=== PATIENT | male | born 1950 | race Caucasian/White ===

== ENCOUNTER 2016-09-14 14:34 | Emergency (ER) | payer OTHER ==
--- NOTE | 2016-09-14 15:15 | EDM.PDOC ---
ED HPI GENERAL MEDICAL PROBLEM - General Chief Complaint: General Stated Complaint: ELEVATED BP Time Seen by Provider: 09/14/16 14:35 Source of Information: Reports: Patient History Limitations: Reports: No Limitations - History of Present Illness INITIAL COMMENTS - FREE TEXT/NARRATIVE: Pt is a 65 year old male with PMH of hypertension and hyperlipidemia, who is here in the area fishing since Thursday. Apparently patient's son claims that patient and himself went fishing today morning and around 11: 30 AM today patient started to get confused.Pt kept asking his son the same questions again and again and kept telling his son that he was confused. No nausea or vomiting. No weakness in the extremities. No blurry vision. No ringing in the ears. He does c/o headache dull in the right side of the head. Able to move his arms and leg. he does obey commands. Pt was seen at [facility], his blood pressure was 210/104mmhg. His blood sugar was normal. So he was transferred to [facility]. Here his BP is 179/92mmhg. But patient keeps repeating the same questions again and again. Onset: Today Onset Date: 09/14/16 Onset Time: 11:30 Severity: Moderate ED ROS GENERAL - Review of Systems Review Of Systems: See Below Constitutional: Denies: Fever, Chills, Weakness HEENT: Denies: Rhinitis, Sinus Problem, Throat Pain, Throat Swelling Respiratory: Denies: Shortness of Breath, Wheezing, Cough, Sputum Cardiovascular: Denies: Chest Pain, Lightheadedness GI/Abdominal: Denies: Abdominal Pain, Constipation, Diarrhea, Nausea, Vomiting : Denies: Dysuria, Flank Pain Neurological: Reports: Confusion, Headache. Denies: Dizziness, Numbness, Paresthesia, Tingling, Trouble Speaking, Difficulty Walking, Weakness Psychiatric: Reports: Confusion. Denies: Agitation, Anxiety Hematologic/Lymphatic: Denies: Easy Bleeding, Easy Bruising ED EXAM, GENERAL - Physical Exam Exam: See Below Exam Limited By: Altered Mental Status (Confused but obeys commands well. But keep repeating the same sentences again and again.) General Appearance: Alert, WD/WN, No Apparent Distress Eye Exam: Bilateral Eye: EOMI, PERRL Ears: Normal External Exam, Normal Canal, Hearing Grossly Normal, Normal TMs Ear Exam: Bilateral Ear: Auricle Normal, Canal Normal, TM normal Nose: Normal Inspection, Normal Mucosa, No Blood Throat/Mouth: Normal Inspection, Normal Lips, Normal Teeth, Normal Gums, Normal Oropharynx, Normal Voice, No Airway Compromise Head: Atraumatic, Normocephalic Neck: Normal Inspection, Supple, Non-Tender, Full Range of Motion Respiratory/Chest: No Respiratory Distress, Lungs Clear, Normal Breath Sounds, No Accessory Muscle Use, Chest Non-Tender Cardiovascular: Normal Peripheral Pulses, Regular Rate, Rhythm, No Edema, No Gallop, No JVD, No Murmur, No Rub GI/Abdominal: Normal Bowel Sounds, Soft, Non-Tender, No Organomegaly, No Distention, No Abnormal Bruit, No Mass Neurological: Alert, CN II-XII Intact, Normal Gait, Normal Reflexes, No Motor/ Sensory Deficits, Confused (Pt is confused and keeps repeating the same questions again and agian.). No: Oriented, Normal Cognition EKG INTERPRETATION EKG Date: 09/14/16 Rhythm: NSR [place]: normal P-wave: present QRS: normal ST-T: normal QT: normal Course - Vital Signs Text/Narrative:: Pt's clinical exam is normal. his neuro exam is normal other than his repetitive questioning. His CBC is normal. His electrolytes are normal . Drug screen is negative. His He does not have any sensory or motor deficits. Co- ordination is normal. CT head shows Chronic subdural hematoma less than 3mm in the left frontal and left posterior fossa. He does appear like he has had a transient amnesia for the events that have happened when his blood pressure was very high between 11:30 to 2 PM. I did Call the neurologist conduit mechanic as per the preference of Patient spouse and son, as they prefer patient to be at [place]. He does feel that he might have had hypertensive encephalopathy with global amnesia, does not appear like stroke. does want MRI and EEG done to rule out other cause and seizure with patient symptoms. Unfortunately we do not have MRI or EEG at our facility. does prefer him transferred down to [place] for workup. He has received his lisinopril 40mg PO as his last BP was 178/92mmhg. Also received Aspirin 325mg PO times one per 's request. Pt's Family wants him transferred to [facility]. There is no availability of ALS ambulance at [place] or [place]. Hence [facility] ambulance was called. Family does understand that there might be a difference in charges on the ambulance transfer that will be and understand they might have to pay out of pocket Last Recorded V/S: Last Vital Signs Temp 97.5 F 09/14/16 17:40 Pulse 62 09/14/16 17:40 Resp 16 09/14/16 17:40 BP 179/94 H 09/14/16 17:40 Pulse Ox 98 09/14/16 17:40 - Orders/Labs/Meds Orders: Active Orders 24 hr Category Date Time Status EKG Documentation Completion [RC] ASDIRECTED Care 09/14/16 14:38 Active Head wo Cont [CT] Stat Exams 09/14/16 14:38 Taken Lisinopril [Prinivil] Med 09/14/16 15:30 Active 40 mg PO DAILY Medication Orders Lisinopril (Prinivil) 40 mg PO DAILY MARKO Last Admin: 09/14/16 15:26 Dose: 40 mg Labs: Laboratory Tests 09/14/16 09/14/16 09/14/16 Range/Units 14:45 14:45 14:45 WBC 11.7 H (4.0-11.0) K/uL RBC 5.17 (4.50-6.50) M/uL Hgb 15.1 (13.0-18.0) g/dL Hct 43.5 (40.0-54.0) % MCV 84 (76-96) fL MCH 29.2 (27.0-32.0) pg MCHC 34.7 (31.0-35.0) g/dL RDW 13.2 (11.0-16.0) % Plt Count 152 (150-400) K/uL MPV 11.1 H (6.0-10.0) fL Neut % (Auto) 86.4 H (45.0-70.0) % Lymph % (Auto) 7.9 L (20.0-40.0) % Pierce % (Auto) 5.0 (3.0-10.0) % Eos % (Auto) 0.5 L (1.0-5.0) % Baso % (Auto) 0.2 (0.0-0.5) % Neut # (Auto) 10.13 H (2.00-7.50) K/uL Lymph # (Auto) 0.92 L (1.50-4.00) K/uL Pierce # (Auto) 0.58 (0.20-0.80) K/uL Eos # (Auto) 0.06 (0.04-0.40) K/uL Baso # (Auto) 0.02 (0.02-0.10) K/uL Sodium 138 (136-145) mmol/L Potassium 3.7 (3.5-5.1) mmol/L Chloride 103 (98-107) mmol/L Carbon Dioxide 24.4 (21.0-32.0) mmol/L Anion Gap 14.3 (5.0-15.0) mmol/L BUN 19 (8-26) mg/dL Creatinine 1.12 (0.70-1.30) mg/dL Est Cr Clr Drug Dosing TNP Estimated GFR (MDRD) > 60 (>60) MLS/MIN BUN/Creatinine Ratio 17.0 (6-25) Glucose 101 H (74-100) mg/dL Calcium 8.8 (8.5-10.1) mg/dL Total Bilirubin 0.5 (0.0-1.0) mg/dL AST 22 (15-37) U/L ALT 33 (12-78) U/L Alkaline Phosphatase 103 (46-116) U/L Troponin I < 0.017 (0.000-0.060) ng/mL Total Protein 7.2 (6.4-8.2) g/dL Albumin 4.0 (3.4-5.0) g/dL Globulin 3.2 (2.2-4.2) g/dL Albumin/Globulin Ratio 1.3 (0.8-2.0) Urine Opiates Screen (NEGATIVE) Ur Oxycodone Screen (NEGATIVE) Urine Methadone Screen (NEGATIVE) U Acetaminophen Screen (NEGATIVE) Ur Barbiturates Screen (NEGATIVE) Ur Tricyclics Screen (NEGATIVE) Ur Phencyclidine Scrn (NEGATIVE) Ur Amphetamine Screen (NEGATIVE) U Methamphetamines Scrn (NEGATIVE) U Benzodiazepines Scrn (NEGATIVE) U Cocaine Metab Screen (NEGATIVE) U Marijuana (THC) Screen (NEGATIVE) 09/14/16 Range/Units 15:29 WBC (4.0-11.0) K/uL RBC (4.50-6.50) M/uL Hgb (13.0-18.0) g/dL Hct (40.0-54.0) % MCV (76-96) fL MCH (27.0-32.0) pg MCHC (31.0-35.0) g/dL RDW (11.0-16.0) % Plt Count (150-400) K/uL MPV (6.0-10.0) fL Neut % (Auto) (45.0-70.0) % Lymph % (Auto) (20.0-40.0) % Pierce % (Auto) (3.0-10.0) % Eos % (Auto) (1.0-5.0) % Baso % (Auto) (0.0-0.5) % Neut # (Auto) (2.00-7.50) K/uL Lymph # (Auto) (1.50-4.00) K/uL Pierce # (Auto) (0.20-0.80) K/uL Eos # (Auto) (0.04-0.40) K/uL Baso # (Auto) (0.02-0.10) K/uL Sodium (136-145) mmol/L Potassium (3.5-5.1) mmol/L Chloride (98-107) mmol/L Carbon Dioxide (21.0-32.0) mmol/L Anion Gap (5.0-15.0) mmol/L BUN (8-26) mg/dL Creatinine (0.70-1.30) mg/dL Est Cr Clr Drug Dosing Estimated GFR (MDRD) (>60) MLS/MIN BUN/Creatinine Ratio (6-25) Glucose (74-100) mg/dL Calcium (8.5-10.1) mg/dL Total Bilirubin (0.0-1.0) mg/dL AST (15-37) U/L ALT (12-78) U/L Alkaline Phosphatase (46-116) U/L Troponin I (0.000-0.060) ng/mL Total Protein (6.4-8.2) g/dL Albumin (3.4-5.0) g/dL Globulin (2.2-4.2) g/dL Albumin/Globulin Ratio (0.8-2.0) Urine Opiates Screen Negative (NEGATIVE) Ur Oxycodone Screen Negative (NEGATIVE) Urine Methadone Screen Negative (NEGATIVE) U Acetaminophen Screen Negative (NEGATIVE) Ur Barbiturates Screen Negative (NEGATIVE) Ur Tricyclics Screen Negative (NEGATIVE) Ur Phencyclidine Scrn Negative (NEGATIVE) Ur Amphetamine Screen Negative (NEGATIVE) U Methamphetamines Scrn Negative (NEGATIVE) U Benzodiazepines Scrn Negative (NEGATIVE) U Cocaine Metab Screen Negative (NEGATIVE) U Marijuana (THC) Screen Negative (NEGATIVE) Meds: Medications Generic Name Dose Route Start Last Admin Trade Name Freq PRN Reason Stop Dose Admin Lisinopril 40 mg 09/14/16 15:30 09/14/16 15:26 Prinivil PO 40 mg DAILY MARKO Administration Discontinued Medications Generic Name Dose Route Start Last Admin Trade Name Freq PRN Reason Stop Dose Admin Aspirin 325 mg 09/14/16 15:58 09/14/16 16:01 Ecotrin PO 09/14/16 15:59 325 mg ONETIME ONE Administration Aspirin Confirm 09/14/16 15:59 09/14/16 16:03 Ecotrin Administered 09/14/16 16:00 Not Given Dose 325 mg .ROUTE .STK-MED ONE Departure - Departure Time of Disposition: 18:00 Disposition: DC/Tfer to Acute Hospital 02 Condition: fair Clinical Impression: Encephalopathy, hypertensive, Global amnesia - Discharge Information Forms: ED Department Discharge - Problem List & Annotations (1) Encephalopathy, hypertensive SNOMED Code(s): 78939201 Code(s): I67.4 - HYPERTENSIVE ENCEPHALOPATHY Status: Acute Current Visit : Yes (2) Global amnesia SNOMED Code(s): 08249951 Code(s): R41.3 - OTHER AMNESIA Status: Acute Current Visit: Yes - Problem List Review Problem List Initiated/Reviewed/Updated: Yes - My Orders Last 24 Hours: My Active Orders 09/14/16 14:38 EKG Documentation Completion [RC] ASDIRECTED Head wo Cont [CT] Stat 09/14/16 15:30 Lisinopril [Prinivil] 40 mg PO DAILY - Assessment/Plan Last 24 Hours: My Active Orders 09/14/16 14:38 EKG Documentation Completion [RC] ASDIRECTED Head wo Cont [CT] Stat 09/14/16 15:30 Lisinopril [Prinivil] 40 mg PO DAILY Assessment:: Hypertensive encephalopathy with transient global amnesia Plan: Pt's clinical exam is normal. his neuro exam is normal other than his repetitive questioning. His CBC is normal. His electrolytes are normal . Drug screen is negative. His He does not have any sensory or motor deficits. Co- ordination is normal. CT head shows Chronic subdural hematoma less than 3mm in the left frontal and left posterior fossa. He does appear like he has had a transient amnesia for the events that have happened when his blood pressure was very high between 11:30 to 2 PM. I did Call the neurologist conduit mechanic as per the preference of Patient spouse and son, as they prefer patient to be at [place]. He does feel that he might have had hypertensive encephalopathy with global amnesia, does not appear like stroke. does want MRI and EEG done to rule out other cause and seizure with patient symptoms. Unfortunately we do not have MRI or EEG at our facility. does prefer him transferred down to [place] for workup. He has received his lisinopril 40mg PO as his last BP was 178/92mmhg. Also received Aspirin 325mg PO times one per 's request. Pt's Family wants him transferred to [facility]. There is no availability of ALS ambulance at [place] or [place]. Hence [facility] ambulance was called. Family does understand that there might be a difference in charges on the ambulance transfer that will be and understand they might have to pay out of pocket
[2016-09-14] MEDS ORDERED: Aspirin 325 MG Tab.EC PO ONE (15:58)
[2016-09-14] MEDS ORDERED: Aspirin 325 MG Tab.EC ONE (15:59)
[2016-09-14 19:43] VITALS: BP 182/96
--- NOTE | 2016-09-15 00:40 | CT ---
DATE OF SERVICE: 09/14/2016 CLINICAL DATA: Elevated BP with confusion and headache. UNENHANCED BRAIN CT Multislice acquisition through the brain without IV contrast was performed. No priors. Motion artifact does degrade image quality. There is a crescentic shaped extra-axial CSF density collection in the left frontoparietal region consistent with a small chronic subdural hematoma. It measures 3 mm in its maximum depth. No mass effect associated with it. There are periventricular lucencies bilaterally consistent with small vessel ischemic change. No masses or mass effect. No intracranial hemorrhage. No evidence of acute or subacute infarct. No osseous abnormalities. IMPRESSION: No acute abnormality. Small chronic subdural hematoma in left frontoparietal region. [id number] [facility]
== END 2016-09-14 18:00 ==
LOC: LB.ED 14:34
DX: I67.4 Hypertensive encephalopathy (principal); R41.3 Other amnesia
CPT/HCPCS: 36415; 70450; 80053; 80307; 84484; 85025; 93005; 99285; A9270